=== PATIENT | male | born 1970 | race Hispanic/Latino ===

== ENCOUNTER 2018-11-12 14:42 | Outpatient (CLI) | payer OTHER ==
--- NOTE | 2018-11-12 15:03 | RAD ---
XR Hip Rt 2-3 View INDICATION: Right hip pain for 2 weeks COMPARISON: None FINDINGS: Bones: No acute osseous abnormality. Bone mineralization appears within normal limits. Hip joint: There is mild right hip osteoarthrosis SI joints and symphysis pubis: Radiographically normal. Intrapelvic contents: There are scattered vascular calcifications. Surrounding soft tissues: Radiographically normal. IMPRESSION: 1. No acute fracture or subluxation demonstrated. 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
== END 2018-11-12 14:43 | disposition home or self-care (01) ==
LOC: SCSRAD 14:42
PROVIDERS: ATTEND Family Medicine
DX: S39.013A Strain of muscle, fascia and tendon of pelvis, initial encounter (principal); M16.11 Unilateral primary osteoarthritis, right hip

== ENCOUNTER 2020-07-20 19:35 | Inpatient (IN) | payer BC ==
[~2020-07-20 19:35] MED LIST: Succinylcholine 200 MG/10 ml SYRINGE FS ONE
[2020-07-20 19:55] LABS: Hemoglobin 16.8 g/dL (14.0-18.0); Mean Corpuscular HGB CONC 34.2 g/dL (32.0-36.0); Mean Corpuscular Hemoglobin 30.9 pg (27.0-31.0); Mean Corpuscular Volume 90.4 fL (78.0-98.0); Mean Platelet Volume 7.2 fL (7.4-10.4); Platelet Count 322 thou/uL (130-400); RBC Distribution Width 11.8 % (11.5-14.5); Red Blood Cell (RBC) Count 5.45 mill/uL (4.70-6.10); White Blood Cell (WBC) Count 11.8 thou/uL (4.8-10.8)
[2020-07-20] MEDS ORDERED: Ketamine 50 MG/ML (10ML VIAL) ONE (19:57)
[2020-07-20] MEDS ORDERED: Propofol 1,000 MG/100 ML VIAL IV ONE ×2 (20:07→23:03)
[2020-07-20] MEDS ORDERED: Fentanyl 100 MCG/2 ML VIAL ONE ×2 (20:08→20:54)
[2020-07-20 20:15] LABS: ALT (SGPT) 38 U/L (8-55); AST (SGOT) 23 U/L (5-34); Albumin 4.3 g/dL (3.5-5.0); Alkaline Phosphatase 71 U/L (40-110); Anion Gap 17 mmol/L (10-20); BUN (Urea Nitrogen) 14 mg/dL (8.9-20.6); Bilirubin, Total 0.2 mg/dL (0.2-1.2); Calc. Creatinine Clearance 0 mL/min (70-130); Calcium 9.1 mg/dL (7.8-10.44); Carbon Dioxide 22 mmol/L (22-29); Chloride 105 mmol/L (98-107); Eosinophils 1 % (0-10); Globulin 2.9 g/dL (2.4-3.5); Glucose 183 mg/dL (70-105); Lymphocytes 61 % (21-51); MDiff Complete? YES; Monocytes 5 % (0-10); Neutrophil 32 % (42-75); Platelet Morphology Comment Appears Adequate; Potassium 3.8 mmol/L (3.5-5.1); Protein, Total 7.2 g/dL (6.0-8.3); RBC Morphology Normal; Reactive Lymphocytes 1 % (0-10); Sodium 140 mmol/L (136-145)
[2020-07-20 20:17] LABS: Actual Bicarbonate (HCO3a) 22.5 mEq/L (22-28); Analyzer IN Cardio ER; Base Excess (BEa) -4.4 mEq/L (-2.0 to +3.0); CO2 Tension 47.4 mmHg (35.0-45.0); Carboxyhemoglobin (COHb) 0.3 gm% (0.0-3.0); Hemoglobin (Hb) 17.8 g/dL (14.0-18.0); O2 Tension (PaO2), arterial 81.6 mmHg (80.0-100.0); pH, Arterial 7.29 (7.35-7.45)
[2020-07-20 20:18] LABS: Puncture Site RRA
[2020-07-20 20:57] LABS: Bilirubin Negative (Negative); Blood, Urine 1+ (Negative); Clarity Clear (Clear); Glucose, Urine (Dipstick) 200 mg/dL (Negative); Ketone, Urine Negative (Negative); Leukocyte 25 Leu/uL (Negative); Nitrite Negative (Negative); Protein, Urine (Dipstick) 70 mg/dL (Neg-Trace); Specific Gravity, Urine 1.027 (1.002-1.036); Urobilinogen Normal mg/dL (Less than 2); pH, Urine 5.5 (5.0-9.0)
[2020-07-20 21:11] LABS: Squamous Epithelial 0-3 HPF (0-3)
[2020-07-20 21:12] LABS: Bacteria/HPF Rare-Few HPF (None Seen)
[2020-07-20] MEDS ORDERED: Fentanyl CADD 100 ML IV SCH (21:15)
[2020-07-20] MEDS ORDERED: Ondansetron PF 4 MG/2 ML Vial IVP PRN (21:27)
[2020-07-20 21:32] LABS: SARS-CoV-2 NAA Rapid Test Not Detected (NotDetected)
[2020-07-20] MEDS ORDERED: Dextrose 5% in Water 1,000 ML IV PRN (22:10)
[2020-07-20] MEDS ORDERED: Dextrose 50% Abboject 50 ML SYRINGE SLOW IVP PRN (22:10)
[2020-07-20] MEDS ORDERED: Albuterol Sulfate 2.5 mg/3 ml Neb NEB PRN (22:10)
[2020-07-20] MEDS ORDERED: Famotidine 20 MG TAB PO SCH (22:15)
[2020-07-20] MEDS ORDERED: EPINEPHrine 1 mg/ml MDV (1ml Charge) IM PRN (22:15)
[2020-07-21] MEDS: Sodium Chloride 0.9% 1,000 ML IV SCH ×4 (00:39→19:29)
[2020-07-21] MEDS: Famotidine/PF 20 mg/2ml Vial SLOW IVP SCH ×3 (00:41→21:36)
[2020-07-21] MEDS ORDERED: Propofol BOLUS 1,000 MG/100 ML VIAL IV PRN (03:45)
[2020-07-21] MEDS ORDERED: Morphine 2 MG/ML VIAL SLOW IVP PRN (03:45)
[2020-07-21] MEDS ORDERED: Fentanyl BOLUS 250 ML IVPB PRN (03:45)
[2020-07-21] MEDS ORDERED: Lorazepam 2 MG/ML VIAL SLOW IVP PRN (03:45)
[2020-07-21 04:03] LABS: #Lymphocytes 1.3 thou/uL (1.20-3.40); #Monocytes 0.2 thou/uL (0.11-0.59); #Neutrophils 11.9 thou/uL (1.40-6.50); %Basophils 0.2 % (0.0-1.0); %Eosinophils 0.2 % (0.0-10.0); %Lymphocytes 9.9 % (21.0-51.0); %Monocytes 1.5 % (0.0-10.0); %Neutrophils 88.2 % (42.0-75.0); Hemoglobin 13.9 g/dL (14.0-18.0); Mean Corpuscular HGB CONC 34.8 g/dL (32.0-36.0); Mean Corpuscular Hemoglobin 31.8 pg (27.0-31.0); Mean Corpuscular Volume 91.5 fL (78.0-98.0); Mean Platelet Volume 7.4 fL (7.4-10.4); Platelet Count 256 thou/uL (130-400); RBC Distribution Width 11.8 % (11.5-14.5); Red Blood Cell (RBC) Count 4.35 mill/uL (4.70-6.10); White Blood Cell (WBC) Count 13.5 thou/uL (4.8-10.8)
[2020-07-21] MEDS: Propofol 1,000 MG/100 ML VIAL IV PRN ×4 (04:03→23:31)
[2020-07-21 04:21] LABS: Anion Gap 14 mmol/L (10-20); BUN (Urea Nitrogen) 18 mg/dL (8.9-20.6); Calc. Creatinine Clearance 146 mL/min (70-130); Calcium 7.7 mg/dL (7.8-10.44); Carbon Dioxide 17 mmol/L (22-29); Chloride 108 mmol/L (98-107); Glucose 236 mg/dL (70-105); Potassium 4.4 mmol/L (3.5-5.1); Sodium 135 mmol/L (136-145)
[2020-07-21] MEDS: methylPREDNISolone Sod Succ 40 MG VIAL IVP SCH ×3 (06:38→21:36)
[2020-07-21] MEDS ORDERED: Prevnar 13-Val Conj/PF 0.5 ML SYRINGE IM ONE (08:30)
[2020-07-21] MEDS: Enoxaparin Sodium 40 MG/0.4 ML SYRINGE SC SCH (08:34)
[2020-07-21 08:35] LABS: Actual Bicarbonate (HCO3a) 17.6 mEq/L (22-28); Analyzer IN Cardio ER; Base Excess (BEa) -7.8 mEq/L (-2.0 to +3.0); CO2 Tension 35.7 mmHg (35.0-45.0); Calcium, Ionized (arterial) 1.16 mmol/L (1.12-1.30); Carboxyhemoglobin (COHb) 0.1 gm% (0.0-3.0); Hemoglobin (Hb) 13.9 g/dL (14.0-18.0); O2 Tension (PaO2), arterial 101.6 mmHg (80.0-100.0); Potassium - ABG Lab 4.74 mmol/L (3.70-5.30); pH, Arterial 7.31 (7.35-7.45)
[2020-07-21 08:42] LABS: Puncture Site RRA
[2020-07-21 08:43] LABS: ALV-art Gradient 138.975 mmHg (0-20)
[2020-07-21] MEDS ORDERED: Famotidine 20 MG TAB PO SCH (09:00)
[2020-07-21] MEDS ORDERED: Fentanyl CADD 100 ML ONE ×2 (09:25→23:04)
[2020-07-21 11:01] VITALS: BMI 34.1
[2020-07-21] MEDS: HumaLOG 300 UNITS/3 ML VIAL SC PRN ×3 (11:21→21:37)
[2020-07-22] MEDS: Sodium Chloride 0.9% 1,000 ML IV SCH ×2 (02:20→07:40)
[2020-07-22 03:28] LABS: #Lymphocytes 1.9 thou/uL (1.20-3.40); #Neutrophils 15.7 thou/uL (1.40-6.50); %Basophils 0.1 % (0.0-1.0); %Eosinophils 0.2 % (0.0-10.0); %Lymphocytes 10.4 % (21.0-51.0); %Monocytes 5.2 % (0.0-10.0); %Neutrophils 84.1 % (42.0-75.0); Hemoglobin 12.6 g/dL (14.0-18.0); Mean Corpuscular HGB CONC 33.7 g/dL (32.0-36.0); Mean Corpuscular Hemoglobin 31.1 pg (27.0-31.0); Mean Corpuscular Volume 92.5 fL (78.0-98.0); Mean Platelet Volume 7.4 fL (7.4-10.4); Platelet Count 244 thou/uL (130-400); Red Blood Cell (RBC) Count 4.04 mill/uL (4.70-6.10); White Blood Cell (WBC) Count 18.6 thou/uL (4.8-10.8)
[2020-07-22 03:48] LABS: Anion Gap 12 mmol/L (10-20); BUN (Urea Nitrogen) 16 mg/dL (8.9-20.6); Calc. Creatinine Clearance 176 mL/min (70-130); Calcium 7.7 mg/dL (7.8-10.44); Carbon Dioxide 19 mmol/L (22-29); Chloride 111 mmol/L (98-107); Glucose 215 mg/dL (70-105); Potassium 4.1 mmol/L (3.5-5.1); Sodium 138 mmol/L (136-145)
[2020-07-22] MEDS: Propofol 1,000 MG/100 ML VIAL IV PRN (04:55)
[2020-07-22] MEDS: methylPREDNISolone Sod Succ 40 MG VIAL IVP SCH ×2 (06:25→21:49)
[2020-07-22] MEDS: HumaLOG 300 UNITS/3 ML VIAL SC PRN ×3 (06:34→16:48)
[2020-07-22 07:14] LABS: Actual Bicarbonate (HCO3a) 20.9 mEq/L (22-28); Base Excess (BEa) -3.9 mEq/L (-2.0 to +3.0); CO2 Tension 37.4 mmHg (35.0-45.0); Calcium, Ionized (arterial) 1.17 mmol/L (1.12-1.30); Carboxyhemoglobin (COHb) 0.1 gm% (0.0-3.0); O2 Tension (PaO2), arterial 96.8 mmHg (80.0-100.0); Potassium - ABG Lab 4.11 mmol/L (3.70-5.30); pH, Arterial 7.37 (7.35-7.45)
[2020-07-22 07:15] LABS: Puncture Site RBA
[2020-07-22] MEDS ORDERED: DC Sedation Protocol FS ONE (08:12)
[2020-07-22] MEDS ORDERED: Furosemide 40 MG/4 ML VIAL SLOW IVP SCH (09:15)
[2020-07-22] MEDS: Famotidine/PF 20 mg/2ml Vial SLOW IVP SCH ×2 (09:35→21:49)
[2020-07-22] MEDS: Enoxaparin Sodium 40 MG/0.4 ML SYRINGE SC SCH (09:35)
[2020-07-22] MEDS: hydrALAZINE 20 MG/ML VIAL SLOW IVP PRN ×2 (14:00→19:55)
[2020-07-22] MEDS: diphenhydrAMINE 50 MG/ML VIAL IVP PRN (14:40)
[2020-07-22] MEDS ORDERED: Iopamidol-370 76% 500 ML 1 ML ONE (14:42)
[2020-07-22] MEDS ORDERED: Hydrocortisone Sod Succ/PF 100 mg/2 ml Vial IVP SCH (14:45)
[2020-07-22] MEDS ORDERED: diphenhydrAMINE 50 MG/ML VIAL IVP SCH (15:00)
[2020-07-22] MEDS ORDERED: cefTRIAXone\\ROCEPHIN 2 GM in Sodium Chloride 0.9% 100 ML IVPB SCH (16:00)
[2020-07-22 18:03] LABS: HBSAg Index 0.23 S/CO (0-0.99); Hep B Surf Ag Non-Reactive S/CO (NonReactive)
[2020-07-22 18:04] LABS: Hep A IgM AB Non-Reactive (NonReactive); Hep A IgM S/CO 0.09 S/CO (0-0.79)
[2020-07-22 18:05] LABS: HBCM Index 0.05 S/CO (0-0.79); Hepatitis B Core IgM Abs Non-Reactive (NonReactive)
[2020-07-22 19:36] LABS: HIV (1/2) Antibody/Antigen Non-Reactive (NonReactive); HIV 1/2 INDEX 0.09 S/CO (<1.00)
[2020-07-22 20:14] LABS: Hep C IgG Ab Non-Reactive (NonReactive)
[2020-07-22] MEDS: Lantus 1000 UNITS/10 ML VIAL SC SCH (21:48)
[2020-07-23] MEDS: methylPREDNISolone Sod Succ 40 MG VIAL IVP SCH ×3 (06:09→21:33)
[2020-07-23] MEDS: Acetaminophen 325 MG TAB PO PRN ×2 (06:18→16:56)
[2020-07-23] MEDS: Lantus 1000 UNITS/10 ML VIAL SC SCH ×2 (08:44→21:32)
[2020-07-23] MEDS: Enoxaparin Sodium 40 MG/0.4 ML SYRINGE SC SCH (08:44)
[2020-07-23] MEDS ORDERED: diphenhydrAMINE 50 MG/ML VIAL IVP SCH (10:00)
[2020-07-23] MEDS: Famotidine/PF 20 mg/2ml Vial SLOW IVP SCH ×2 (10:30→21:33)
[2020-07-23] MEDS: hydrALAZINE 20 MG/ML VIAL SLOW IVP PRN (16:57)
[2020-07-23] MEDS: diphenhydrAMINE 50 MG/ML VIAL IVP PRN (23:15)
[2020-07-24] MEDS: hydrALAZINE 20 MG/ML VIAL SLOW IVP PRN ×2 (01:39→14:07)
[2020-07-24] MEDS: Acetaminophen 325 MG TAB PO PRN ×2 (01:55→06:07)
[2020-07-24] MEDS: methylPREDNISolone Sod Succ 40 MG VIAL IVP SCH ×2 (05:49→14:08)
[2020-07-24] MEDS: Enoxaparin Sodium 40 MG/0.4 ML SYRINGE SC SCH (08:55)
[2020-07-24] MEDS: Lantus 1000 UNITS/10 ML VIAL SC SCH (08:59)
[2020-07-24] MEDS: Famotidine/PF 20 mg/2ml Vial SLOW IVP SCH (09:33)
[2020-07-24] MEDS ORDERED: Cepastat Lozenges 1 LOZ PO PRN (12:25)
[2020-07-24 12:31] VITALS: TEMP 97.8
[2020-07-24] MEDS: HumaLOG 300 UNITS/3 ML VIAL SC PRN ×2 (14:08→16:41)
[2020-07-24 16:13] VITALS: BP 162/81
[2020-07-25 16:37] LABS: Measles (Rubeola) IgG AB Less than 13.5 AU/mL (Immune >16.4); Mumps IgG ABS Less than 9.0 AU/mL (Immune >10.9)
== END 2020-07-24 16:53 | disposition home or self-care (01) | DRG 915 ==
LOC: ERS 19:35 → CCU 20:29 → T4-B 07-22 14:26 → CCU 07-22 14:31 → T4-B 07-23 12:44
PROVIDERS: ADMIT Internal Medicine; ATTEND Internal Medicine
PROC: 0BH17EZ Insertion of Endotracheal Airway into Trachea, Via Natural or Artificial Opening (ICD-10-PCS; principal; 2020-07-20)
PROC: 5A1945Z Respiratory Ventilation, 24-96 Consecutive Hours (ICD-10-PCS; 2020-07-20)
DX: T78.3XXA Angioneurotic edema, initial encounter (principal); J96.00 Acute respiratory failure, unspecified whether with hypoxia or hypercapnia; I10 Essential (primary) hypertension; E78.5 Hyperlipidemia, unspecified; E11.9 Type 2 diabetes mellitus without complications; E66.9 Obesity, unspecified; F17.210 Nicotine dependence, cigarettes, uncomplicated; K11.20 Sialoadenitis, unspecified; Z88.8 Allergy status to other drugs, medicaments and biological substances; Z90.49 Acquired absence of other specified parts of digestive tract; Z68.34 Body mass index [BMI] 34.0-34.9, adult
CPT/HCPCS: 31500; 36415; 36416; 36600; 51702; 70491; 71045; 80048; 80053; 80074; 81003; 81015; 82805; 84484; 85025; 86735; 86762; 86765; 87040; 87086; 87389; 93005; 94002; 94003; 96365; 96366; 96375; 96376; J0360; J0696; J1200; J1650; J1720; J1815; J1940; J2704; J2920; J3010; J3490; Q9967; S0028; U0002